=== PATIENT | male | born 1955 | race Caucasian/White ===

== ENCOUNTER 2022-01-24 19:06 | Emergency (ER) | payer MEDICARE, OTHER, SELFPAY ==
--- NOTE | ~2022-01-24 | XR_ITS ---
EXAMINATION: XR toe 1st LT min 2V INDICATION: Left first toe pain, initial encounter TECHNIQUE: Three views of the left first toe are obtained COMPARISON: None available FINDINGS: There is an acute, traumatic, comminuted fracture of the first proximal phalanx which exten ds to the interphalangeal joint. Open fracture is not excluded. 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 IMPRESSION: 1. Comminuted fracture of the first proximal phalanx extending to the interphalangeal joint. Reviewed, dictated and finalized at location F. IMPRESSION: 1. Comminuted fracture of the first proximal phalanx extending to the interphal angeal joint.
[2022-01-24 19:26] VITALS: BP 139/76; PULSE 85; RESP 18; TEMP 36.6; O2SAT 98
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
[2022-01-24] MEDS: CEPHALEXIN 500 MG CAPSULE PO (21:25)
[2022-01-24 21:40] VITALS: RESP 18; O2SAT 98
== END 2022-01-24 21:40 | disposition home or self-care (01) ==
PROVIDERS: Emergency Provider Family Medicine; PCP Internal Medicine
DX: S92.412A Displaced fracture of proximal phalanx of left great toe, initial encounter for closed fracture (principal); E11.9 Type 2 diabetes mellitus without complications; W22.8XXA Striking against or struck by other objects, initial encounter
CPT/HCPCS: 73660; 99284; A9270